=== PATIENT | male | born 1995 | race Caucasian/White ===

== ENCOUNTER 2018-05-30 00:51 | Inpatient (IN) ==
--- NOTE | 2018-05-30 12:34 | P.HP ---
History of Present Illness Primary Care Physician: Femi Wagner DO Chief Complaint: Swollen lip History of Present Illness: 23-year-old male who is nonverbal, has autism, hyperlipidemia, hypothyroidism who was brought to the hospital by the nursing home that he lives at because of swelling of his right upper lip. Patient is unable to give any information, information was taken from medical records, nursing staff, caregiver at bedside. The caregiver at bedside does not know much of his history or presenting symptoms. States that he had a swelling of his upper lip and ER doctor recommended that he be admitted for tachycardia, infection. It was indicated by the ER documentation that the patient was brought in from the nursing home because of at apparently 6 PM last evening started having swelling of his right upper lip that continue to worsen. Patient did have workup done in the emergency department, on presentation he did have tachycardia at 138, workup did indicate the patient has a small cystic area adjacent to the tip of the root of the right incisor suggesting possible dental abscess. Is recommended by ER physician because of the tachycardia, infection that patient possibly had sepsis. Upon evaluation today patient is doing much better. Heart rate is normal. He is sitting in bed without any significant signs of sepsis. - Diagnosis (1) Abscess, dental Inpatient Certification: I certify that the inpatient services were ordered in accordance with Medicare regulations governing the order. This includes certification that hospital inpatient services are reasonable and necessary and in the case of services not specified as inpatient-only under 42 CFR 419.22(n), that they are appropriately provided as inpatient services in accordance to with the 2-midnight benchmark under 43 CFR 412.3(e) Review of Systems unobtainable due to mental condition PMFSH - History History Provided By: Machine Finisher / EMT - Medical History Medical History: Medical History (Last Updated 05/30/18 @ 12:27 by NOA Adler) Autism Hypercholesterolemia Hypothyroidism Intermittent explosive disorder Nonverbal - Surgical History Surgical History: Surgical History (Last Updated 05/30/18 @ 12:27 by NOA Adler) History of tonsillectomy - Family History Family History: Family History (Last Updated 05/30/18 @ 12:27 by NOA Adler) Other Family history unobtainable - Tobacco History Second Hand Smoke Exposure: No Tobacco Use In Past 30 Days: No Smoking Status: Never smoker - Alcohol History How Often Do You Have a Drink Containing Alcohol: Never - Substance Use History Substance History: No History of Abuse Medications and Allergies Active Medications: Active Medications Levothyroxine Sodium (Synthroid) 50 mcg PO DAILY@0600 ROSLYN Allergies Allergy/AdvReac Type Severity Reaction Status Date / Time latex Allergy Severe Rash Verified 05/30/18 01:06 risperidone Allergy Severe Twitching Verified 05/30/18 01:06 Home Medications Medication Instructions Recorded Confirmed Type fenofibrate nanocrystallized 145 mg PO DAILY 05/30/18 05/30/18 History guanfacine 1 mg PO TID 05/30/18 05/30/18 History levothyroxine 50 mcg PO DAILY 05/30/18 05/30/18 History melatonin 9 mg PO HS PRN 05/30/18 05/30/18 History niacin 1,000 mg PO DAILY 05/30/18 05/30/18 History olanzapine 10 mg PO DAILY 05/30/18 05/30/18 History omega [id number]-fish oil [Fish Oil] 2,000 mg PO BID 05/30/18 05/30/18 History Exam Vital signs: Intake & Output 05/29/18 05/30/18 05/30/18 18:59 06:59 18:59 Weight 81 kg Other: Weight On Admission 81 kg Narrative: GENERAL: Well-developed, well-nourished, in no acute distress. Awake, nonverbal HEENT: Head is normocephalic without any lesions or masses noted. Facial features are symmetric. Eyes: Pupils equal round reactive to light. Extraocular muscles are intact. Conjunctivae were clear. Oropharyngeal: Pharynx without any erythema edema. Tongue is midline without deviation. Buccal mucosa is moist without any masses or lesions. Mild edema noted to right upper lip NECK: Supple without any masses. Trachea midline no deviation. No JVD, no bruits are appreciated CARDIAC: Regular rhythm, regular rate. S1/S2 are heard. No murmurs gallops or rubs. LUNGS: Clear to auscultation bilaterally. No wheeze, rhonchi or rales. No use of accessory muscles on inspiration or expiration. ABDOMEN: Soft, nontender. Nondistended. Bowel sounds heard in all 4 quadrants. No organomegaly or masses. Negative rebound, negative guarding EXTREMITIES: No edema, pulses are equal bilaterally. No cyanosis or clubbing NEUROLOGY: Cranial nerves II through XII grossly intact. Muscle strength 5/5 in upper and lower extremities bilaterally. Deep tendon reflexes are 2+ in upper and lower extremities bilaterally. Caprini VTE Risk Assessment Caprini VTE Risk Assessment: No/Low Risk (score <= 1) Caprini Risk Assessment Model: Point Value = 1 Point Value = 2 Point Value = 3 Point Value = 5 Age 41-60 Minor surgery BMI > 25 kg/m2 Swollen legs Varicose veins or History of unexplained or recurrent spontaneous Oral contraceptives or hormone replacement Sepsis (< 1 month) Serious lung disease, including pneumonia (< 1 month) Abnormal pulmonary function Acute myocardial infarction Congestive heart failure (< 1 month) History of inflammatory bowel disease Medical patient at bed rest Age 61-74 Arthroscopic surgery Major open surgery (> 45 min) Laparoscopic surgery (> 45 min) Malignancy Confined to bed (> 72 hours) Immobilizing plaster cast Central venous access Age >= 75 History of VTE Family history of VTE Factor V Leiden Prothrombin 55421A Lupus anticoagulant Anticardiolipin antibodies Elevated serum homocysteine Heparin-induced thrombocytopenia Other congenital or acquired thrombophilia Stroke (< 1 month) Elective arthroplasty Hip, pelvis, or leg fracture Acute spinal cord injury (< 1 month) Prophylaxis Regimen: Total Risk Factor Score Risk Level Prophylaxis Regimen 0-1 Low Early ambulation 2 Moderate Order ONE of the following: *Sequential Compression Device (SCD) *Heparin 5000 units SQ BID 3-4 Higher Order ONE of the following medications: *Heparin 5000 units SQ TID *Enoxaparin/Lovenox 40 mg SQ daily (WT < 150 kg, CrCl > 30 mL/min) *Enoxaparin/Lovenox 30 mg SQ daily (WT < 150 kg, CrCl > 10-29 mL/min) *Enoxaparin/Lovenox 30 mg SQ BID (WT < 150 kg, CrCl > 30 mL/min) AND/OR *Sequential Compression Device (SCD) 5 or more Highest Order ONE of the following medications: *Heparin 5000 units SQ TID (Preferred with Epidurals) *Enoxaparin/Lovenox 40 mg SQ daily (WT < 150 kg, CrCl > 30 mL/min) *Enoxaparin/Lovenox 30 mg SQ daily (WT < 150 kg, CrCl > 10-29 mL/min) *Enoxaparin/Lovenox 30 mg SQ BID (WT < 150 kg, CrCl > 30 mL/min) AND *Sequential Compression Device (SCD) Assessment and Plan - Assessment (1) Abscess, dental Code(s): K04.7 - Periapical abscess without sinus Status: Acute - Plan Sepsis, resolved -Patient presented with tachycardia, mild leukocytosis, dental abscess -Patient started on clindamycin -CT scan does indicate cystic lesion noted on the right side noted by the incisor indicative of abscess -Blood cultures are pending -Continue Pen-VK 500 mg 4 times daily Hyperlipidemia, hypothyroidism -Continue home medications DVT prevention -Low risk, early ambulation Discharge Planning: Discharge home in stable condition Activity: Ad michelle. Diet: Regular diet Medication per medication reconciliation Follow-up with primary medical doctor in 1 week
[2018-05-31] MEDS ORDERED: Levothyroxine 50 MCG Tablet PO SCH (06:00)
== END 2018-05-30 13:07 | disposition home or self-care (01) ==
LOC: PHEDDLT 00:51 → PH3 08:35
PROVIDERS: ADMIT Hospitalist; ATTEND Hospitalist